=== PATIENT | male | born 1975 | race African-American/Black ===

== ENCOUNTER 2016-12-30 13:23 | Emergency (ER) | payer SELFPAY ==
[~2016-12-30] VITALS: Ht 177.8 cm; Wt 71.5 kg
[~2016-12-30 13:23] MED LIST: PROM6.257 PO; Z.0.NO CURRENT MEDS
[2016-12-30 13:25] VITALS: BP 135/86; PULSE 99; RESP 18; TEMP 97.6; O2SAT 100
--- NOTE | 2016-12-30 14:10 | PD ---
HPI Chief Complaint: Injury Time Seen by Provider: 14:05 Travel History International Travel<30 days: No Contact w/Intl Traveler<30days: No Traveled to known affect area: No History of Present Illness HPI 41-year-old male presents to the emergency department after a complete flexion injury of his right wrist that occurred this morning. States he was fishing and fell onto the concrete wrist first completely flexing his wrist. Denies numbness or tingling. States that the pain is moderate to excruciating and has taken Aleve with minimal relief. Patient denies any other chronic medical conditions or medication use. Patient is having trouble moving his forearm as well because of the pain. He is reluctant to move his fingers because of the pain. Patient describes constant, achy. PFSH Past Medical History Medical History: Denies Significant Hx Hx Anticoagulant Therapy: No Cardiovascular Problems: No Chemotherapy: No Cerebrovascular Accident: No Diabetes: No Diminished Hearing: No GERD: Yes Respiratory: No Past Surgical History Surgical History: No Previous Surgery Other Surgery: Yes (HERNIA) Social History Alcohol Use: Yes (MAYBE 1 A MONTH) Tobacco Use: Yes () Substance Use: No Allergies-Medications (Allergen,Severity, Reaction): Coded Allergies: No Known Allergies (Verified Adverse Reaction, Unknown, 12/30/16) Reported Meds & Prescriptions Reported Meds & Active Scripts Active Hydrocodone-Acetaminophen 5-325 mg Tab 1 Tab PO Q8HR PRN 3 Days Review of Systems Except as stated in HPI: all other systems reviewed are Neg Physical Exam Narrative GENERAL: Well-developed well-nourished in mild distress, patient on the phone during exam SKIN: Focused skin assessment warm/dry. HEAD: Atraumatic. Normocephalic. NECK: Trachea midline. No JVD. RESPIRATORY: No accessory muscle use. MUSCULOSKELETAL: No obvious deformities. No clubbing. No cyanosis. No edema. Right arm- midforearm tenderness palpation bilaterally, difficulty rotating forearm secondary to pain.. Wrist in flexion secondary to pain. Radial aspect of wrist edematous no obvious deformities. Neurovascularly intact. NEUROLOGICAL: Awake and alert. No obvious cranial nerve deficits. Motor grossly within normal limits. Normal speech. PSYCHIATRIC: Appropriate mood and affect; insight and judgment normal. Data Data Last Documented VS Vital Signs Date Time Temp Pulse Resp B/P (MAP) Pulse Ox O2 Delivery O2 Flow Rate FiO2 12/30/16 15:49 12/30/16 15:30 16 12/30/16 13:25 97.6 99 100 Room Air Orders Orders Forearm (2vws) (12/30/16 ) Wrist, Complete ([id number]) (12/30/16 ) Acetamin-Hydrocod 325-5 Mg ([place] 5-325 (12/30/16 14:15) Hand, Complete ([id number]) (12/30/16 ) Splinting (12/30/16 ) Mandatory Outpatient Referral (12/30/16 15:11) Ed Discharge Order (12/30/16 15:14) Fiberglass Sugartong Sp Ad Arm (12/30/16 ) Sling Cradle Arm (12/30/16 ) MDM Medical Decision Making Medical Screen Exam Complete: Yes Emergency Medical Condition: Yes Differential Diagnosis Right wrist fracture versus contusion versus sprain Right forearm fracture versus contusion versus sprain Narrative Course 41-year-old male presents to the emergency department after a complete flexion injury of his right wrist that occurred this morning. States he was fishing and fell onto the concrete wrist first completely flexing his wrist. Denies numbness or tingling. States that the pain is moderate to excruciating and has taken Aleve with minimal relief. Patient denies any other chronic medical conditions or medication use. Patient is having trouble moving his forearm as well because of the pain. He is reluctant to move his fingers because of the pain. Patient describes constant, achy. Physical exam- neurovascular intact Forearm Xray- Findings are suspect for a nondisplaced fracture of the distal radius extending to the articular surface. Sugar tong splint, hydrocodone for pain control. Advised patient to follow up with orthopedics. Hydrocodone for pain control. Advised to return for worsening symptoms Diagnosis Primary Impression: Distal radius fracture, right Qualified Codes: S52.501A - Unspecified fracture of the lower end of right radius, initial encounter for closed fracture Referrals: Orthopedist Additional Instructions: Follow-up with orthopedics within 3 days. You have a mandatory referral to orthopedics. Pain worsens or persists return to the emergency department. Use pain medication sparingly Scripts Hydrocodone-Acetaminophen (Hydrocodone-Acetaminophen) 5-325 mg Tab 1 TAB PO Q8HR Y for PAIN for 3 Days, TAB 0 Refills Prov: Yadira Greene DO 12/30/16 Disposition: 01 DISCHARGE HOME Condition: Stable Sunita Morales Dec 30, 2016 14:10
[2016-12-30] MEDS ORDERED: ACETAMINOPHEN/HYDROcodone 325 MG/5 MG TAB PO ONE (14:15)
--- NOTE | 2016-12-30 14:52 | RADRPT ---
EXAM DATE/TIME: 12/30/2016 14:33 [facility] COMPARISON: No previous studies available for comparison. INDICATIONS : Pain from fall. MEDICAL HISTORY : None. SURGICAL HISTORY : None. ENCOUNTER: Initial ACUITY: 1 day PAIN SCORE: 10/10 LOCATION: Right wrist. FINDINGS: There is a lucency of the distal radius at the articular surface consistent with a nondisplaced fract ure. There is normal bone density. CONCLUSION: Findings are suspect for a nondisplaced fracture of the distal radius extending to the articular surf karina. Rickey Walsh MD on December 30, 2016 at 14:50 Board Certified Radiologist. This report was verified electronically.
--- NOTE | 2016-12-30 14:57 | RADRPT ---
EXAM DATE/TIME: 12/30/2016 14:24 [facility] COMPARISON: No previous studies available for comparison. INDICATIONS : Pain from fall. MEDICAL HISTORY : None. SURGICAL HISTORY : None. ENCOUNTER: Initial ACUITY: 1 day PAIN SCORE: 10/10 LOCATION: Right wrist. FINDINGS: Three view examination of the right wrist demonstrates no soft tissue swelling, dislocation, or fract ure. The carpal bones are in normal alignment. The joint spaces are maintained. Bony mineralizatio n is normal. CONCLUSION: Unremarkable examination of the right wrist. Rickey Walsh MD on December 30, 2016 at 14:55 Board Certified Radiologist. This report was verified electronically.
--- NOTE | 2016-12-30 14:57 | RADRPT ---
EXAM DATE/TIME: 12/30/2016 14:24 [facility] COMPARISON: FOREARM RIGHT (2VWS), December 30, 2016, 14:33. WRIST RIGHT COMPLETE ([id number]), December 30, 2016, 1 4:24. INDICATIONS : Pain from fall. MEDICAL HISTORY : None. SURGICAL HISTORY : None. ENCOUNTER: Initial ACUITY: 1 day PAIN SCORE: 10/10 LOCATION: Right wrist. FINDINGS: Three view examination of the right hand demonstrates no soft tissue swelling, dislocation, or fractu re. The carpal bones appear intact. The interphalangeal and metacarpophalangeal joints are intact. Bony mineralization is normal. CONCLUSION: No acute disease. Rickey Walsh MD on December 30, 2016 at 14:56 Board Certified Radiologist. This report was verified electronically.
[2016-12-30] MEDS ORDERED: HYDR-3516 PO (15:13)
[2016-12-30 15:30] VITALS: RESP 16
== END 2016-12-30 15:49 | disposition home or self-care (01) ==
LOC: NEPD 13:23
DX: S52.501A Unspecified fracture of the lower end of right radius, initial encounter for closed fracture (principal); F17.200 Nicotine dependence, unspecified, uncomplicated; W19.XXXA Unspecified fall, initial encounter; Y93.89 Activity, other specified
CPT/HCPCS: 29125; 73090; 73110; 73130